=== PATIENT | male | born 1980 | race Two or more races ===

== ENCOUNTER 2023-10-23 22:18 | Emergency (ER) | payer MEDICAID, OTHER ==
[~2023-10-23] VITALS: Ht 172.7 cm; Wt 90.0 kg
[2023-10-23 22:55] VITALS: TEMP 98.2
[2023-10-23 23:13] VITALS: PULSE 88; RESP 19; O2SAT 95
[2023-10-23] MEDS: ONDANSETRON HCL 4 MG/2 ML VIAL IV ONE (23:43)
[2023-10-23] MEDS: MORPHINE SULFATE 4 MG/ML SYR/VIAL IV ONE (23:44)
[2023-10-24] MEDS: IOHEXOL 300 MG/ML 100ML BOTTLE IJ ONE ×2 (00:19→01:38)
[2023-10-24 00:24] LABS: Basophils # (auto) 0 10 ^3/uL (0-0.2); Basophils % (auto) 0.2 % (0.0-2.0); Eosinophils # (auto) 0 10 ^3/uL (0-0.8); Eosinophils % (auto) 0.1 % (0.0-7.0); Hematocrit 42.1 % (41.0-53.0); Hemoglobin 14.6 g/dL (13.5-17.5); Lymphocytes # (auto) 0.9 10 ^3/uL (0.4-5.4); Lymphocytes % (auto) 6.3 % (10.0-50.0); Mean Corpuscular Hemoglobin 31.7 pg (28.0-32.0); Mean Corpuscular Hgb Conc. 34.7 g/dL (32.0-36.0); Mean Corpuscular Volume 91.5 fL (80.0-100.0); Monocytes # (auto) 1.3 10 ^3/uL (0-1.3); Neutrophils % (auto) 84.4 % (37.0-80.0); Red Cell Distribution Width 13.7 % (11.8-14.3); White Blood Cell 14.2 10^3/uL (4.4-10.8)
[2023-10-24 00:30] LABS: Chloride 106 mmol/L (98-107); Potassium 4.1 mmol/L (3.5-5.1); Sodium 139 mmol/L (136-145)
[2023-10-24 00:31] LABS: Anion Gap 7 (5-15); Carbon Dioxide 26 mmol/L (20-30)
[2023-10-24 00:32] LABS: Calcium 9.3 mg/dL (8.7-10.4)
[2023-10-24 00:36] LABS: Glucose 112 mg/dL (74-106)
[2023-10-24 00:37] LABS: BUN/Creatinine Ratio 11.2 (10.0-20.0); Blood Urea Nitrogen 12 mg/dL (9-23)
[2023-10-24] MEDS: SODIUM CHLORIDE 0.9% 1,000 ML IV ONE (01:38)
[2023-10-24 04:00] VITALS: O2SAT 98
[2023-10-24] MEDS ORDERED: IBU600T PO (04:06)
[2023-10-24 04:11] VITALS: BP 146/85; PULSE 76; RESP 13
[2023-10-24] MEDS: MORPHINE SULFATE 4 MG/ML SYR/VIAL IV ONE (04:11)
[2023-10-24] MEDS: ONDANSETRON HCL 4 MG/2 ML VIAL IV ONE (04:12)
== END 2023-10-24 04:20 | disposition home or self-care (01) ==
LOC: ER 22:18 → EDBD 22:18 → ER 10-24 04:20
DX: S42.292A Other displaced fracture of upper end of left humerus, initial encounter for closed fracture (principal); V29.888A Rider (driver) (passenger) of other motorcycle injured in other specified transport accidents, initial encounter; Y93.I9 Activity, other involving external motion; Y92.89 Other specified places as the place of occurrence of the external cause; Y99.8 Other external cause status
CPT/HCPCS: 36415; 70450; 71260; 72125; 73030; 73552; 73560; 74177; 80048; 85025; 96361; 96374; 96375; 96376; 99285; J2270; J2405; J7030; Q9967

== ENCOUNTER 2023-10-26 16:05 | Emergency (ER) | payer MEDICAID ==
[~2023-10-26] VITALS: Ht 177.8 cm; Wt 88.0 kg
[~2023-10-26 16:05] MED LIST: IBU600T PO
[2023-10-26 18:48] VITALS: BP 121/80; PULSE 64; RESP 16; TEMP 98.4; O2SAT 99
[2023-10-26] MEDS ORDERED: ACE3T PO (18:56)
[2023-10-26] MEDS: KETOROLAC TROMETH 60MG/2ML VIAL IM ONE (19:05)
== END 2023-10-26 19:03 | disposition home or self-care (01) ==
LOC: ER 16:05
DX: S42.292A Other displaced fracture of upper end of left humerus, initial encounter for closed fracture (principal); V86.59XA Driver of other special all-terrain or other off-road motor vehicle injured in nontraffic accident, initial encounter; Y93.89 Activity, other specified; Y92.89 Other specified places as the place of occurrence of the external cause; Y99.8 Other external cause status
CPT/HCPCS: 96372; 99283; J1885